=== PATIENT | female | born 1990 | race Caucasian/White ===

== ENCOUNTER 2023-02-18 14:10 | Emergency (ER) | payer MEDICAID ==
[~2023-02-18] VITALS: Ht 152.4 cm; Wt 36.3 kg
[2023-02-18 14:20] VITALS: BP_SYST 123
--- NOTE | 2023-02-18 14:23 | NUR ---
Dr De Dios evaluating patient at bedside
--- NOTE | 2023-02-18 14:25 | NUR ---
Pt BIB self. 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 Pt states "trying to be clean" but has relapsed. Pt states to have seizure last night. Erythema noted to L lower lip and L upper cheek. No bleeding or open wound noted. Pt states erythema related to fall. Pt states happened when she fell in parking lot. Pt pain 5/10 to L side of face. Pt family does not recall how long seizure happened. AAOX4. PERRLA. skin dry and intact. Pt speaking full complete sentences. Pt in bed with side rails up and padding to side rails. Family at bedside.
[2023-02-18] MEDS ORDERED: BUPRENORPHINE HCL/NALOXONE HCL 2-0.5 MG 1 EACH TAB.SUBL SL ONE ×4 (14:30→16:15)
--- NOTE | 2023-02-18 14:36 | NUR ---
Pt to hallway with vital signs monitoring and family bedside,
[2023-02-18] MEDS ORDERED: MAG-AL HYDROX/SIMETH 30 ML UDC PO ONE (16:00)
[2023-02-18] MEDS ORDERED: LIDOCAINE VISCOUS 2%, 15 ML UDC MM ONE (16:00)
--- NOTE | 2023-02-18 16:48 | NUR ---
Patient given written and verbal discharge instructions and verbalizes understanding. ER MD discussed with patient the results and treatment provided. Patient in stable condition. ID arm band removed. Rx of given. Patient educated on pain management and to follow up with PMD. Opportunity for questions provided and answered. Medication side effect fact sheet provided.
[2023-02-18 16:59] VITALS: BP_SYST 123
== END 2023-02-18 16:59 | disposition home or self-care (01) ==
LOC: SED 14:10
DX: F11.23 Opioid dependence with withdrawal (principal); R56.9 Unspecified convulsions; Z79.899 Other long term (current) drug therapy
CPT/HCPCS: 99283; J2001